=== PATIENT | female | born 1950 | race Caucasian/White ===

== ENCOUNTER → 2024-01-08 | Outpatient (CLI) | payer MEDICARE ==
[2024-01-08 15:32] LABS: HGB 12.3 g/dL (12.0-15.0); MCH 29.7 pg (27.0-32.0); MCHC 31.5 g/dL (32.0-37.0); MCV 94.2 FL (80.0-97.0); Mean Platelet Volume 13.4 FL (9.5-12.2); NRBC Per 100 WBC 0 X 10*3/uL (0.00-0.01); Platelet Count 221 X 10*3/uL (140-440); RBC 4.14 X 10*6/uL (4.10-5.20); WBC 6.37 X 10*3/uL (4.50-10.00)
[2024-01-08 15:52] LABS: % Iron Saturation 16.63 (12.00-45.00); ALT 13 U/L (8-44); AST 22 U/L (13-35); Albumin 4.5 g/dL (3.8-4.9); Albumin/Globulin Ratio 1.61 Ratio (1.60-3.17); Alkaline Phosphatase 93 U/L (41-126); BUN/Creat Ratio 16.36 Ratio (12.00-20.00); Calcium 9.7 mg/dL (8.7-10.3); Carbon Dioxide 24.1 mmol/L (21.6-31.8); Chloride 108 mmol/L (96-109); Ferritin 46.3 ng/mL (10.0-291.0); Globulin 2.8 g/dL (1.6-3.3); Glucose 89 mg/dL (70-110); Iron 68 UG/DL (50-170); Magnesium 2.1 mg/dL (1.5-2.4); Potassium 4.8 mmol/L (3.5-5.5); Sodium 143 mmol/L (135-145); Total Bilirubin 0.2 mg/dL (0.3-1.2); Total Iron Binding Capacity 409 UG/DL (228-460); Total Protein 7.3 g/dL (6.2-8.2)
[2024-01-08 16:49] LABS: Appearance,Urine Clear (Clear); Bilirubin,Urine Negative (Negative); Blood,Urine Negative (Negative); Color,Urine Yellow (Yellow); Ketones,Urine Negative (Negative); Nitrite,Urine Negative (Negative); PH, Urine 5.5; Urobilinogen,Urine 0.2 E.U./DL
[2024-01-08 16:52] LABS: Bacteria,Urine None Seen (None Seen)
[2024-01-08 22:47] LABS: Microalbumin Creatinine Ratio <23 mg/g Cr (0-30); Urine Creatinine 52.1 mg/dL (28.0-217.0)
[2024-01-12 17:55] LABS: Free Kappa Lt Chain Qnt, Serum 1.83 mg/dL (0.33-1.94)
== END | disposition home or self-care (01) ==
LOC: LABWHC1 10:26
PROVIDERS: ATTEND Internal Medicine
CPT/HCPCS: 36415; 80053; 81001; 82043; 82306; 82570; 82728; 83540; 83550; 83735; 83883; 83970; 84100; 84166; 84550; 85027; 86334

== ENCOUNTER → 2024-01-16 | Outpatient (CLI) | payer MEDICARE ==
--- NOTE | 2024-01-16 12:49 | US ---
EXAMINATION TYPE: US kidneys/renal and bladder DATE OF EXAM: 01/16/2024 COMPARISON: NONE CLINICAL INDICATION: Female, 73 years old with history of N18.32 CHRONIC KIDNEY DISEASE, STAGE 3B; CK D TECHNIQUE: Grayscale and color Doppler imaging of the bilateral kidneys and urinary bladder: FINDINGS: EXAM MEASUREMENTS: Right Kidney: 9.1 x 2.8 x 3.4 cm Left Kidney: 10.6 x 4.0 x 4.3 cm Right Kidney: Cortical thinning Left Kidney: No hydronephrosis or masses seen Bladder: Anechoic Bilateral Jets seen: yes There is no evidence for hydronephrosis at this point in time. Cortical medullary differentiation is maintained. Cortical thinning bilaterally. No nephrolithiasis is seen. No masses are identified. T he urinary bladder is anechoic. Bilateral ureteral jets identified. IMPRESSION: 1. No hydronephrosis or nephrolithiasis. 2. Findings of bilateral chronic medical renal disease. [facility], , 01/16/2024 12:47 PM
== END | disposition home or self-care (01) ==
LOC: RADUSWWP 12:13
PROVIDERS: ATTEND Internal Medicine
DX: N18.32 Chronic kidney disease, stage 3b (principal)
CPT/HCPCS: 76770

== ENCOUNTER → 2024-01-28 | Outpatient (CLI) | payer MEDICARE ==
--- NOTE | 2023-11-28 20:19 | MM ---
Reason for Exam: Screening (asymptomatic). Risk Values: Ruby 5 year model risk: 1.1%. NCI Lifetime model risk: 3.2%. Tissue Density: The breasts are heterogeneously dense, which may obscure small masses. Findings: Analyzed By CAD. There is fluctuating nodularity in an overall benign pattern. Grouped punctate microcalcifications central left breast are unchanged. There is no suspicious group of microcalcifications or new suspicious mass in either breast. Overall Assessment: Benign, BI-RAD 2 Management: Screening Mammogram of both breasts in 1 year. . Patient should continue monthly self-breast exams. A clinical breast exam by your physician is recommended on an annual basis. This exam should not preclude additional follow-up of suspicious palpable abnormalities. Note on Ruby scores and lifetime risk: 1. A Ruby score greater than 3% is considered moderate risk. If this is the case, consider specialist referral to assess eligibility for a risk reducing agent. 2. If overall lifetime risk for the development of breast cancer is 20% or higher, the patient may qualify for future screening with alternating mammogram and breast MRI. Electronically signed and approved by: Calderon Cardoza M.D. Radiologist
--- NOTE | 2024-01-28 17:02 | CA ---
Transthoracic Echo Report Name: Shelbi Carrion Age: 73 Gender: F : 1950 Exam Date: 01/28/2024 13:00 Exam Location: [facility] Ht (in): 60 Wt (lb): 121 Ordering Physician: Ovidio Ramos MD Attending/Referring Phys: Susannah Rincon PAC Varnish Thinner Juana Dupont RDCS Procedure CPT: Indications: R06.00 DYSPNEA, UNSPECIFIED Cardiac Hx: Technical Quality: Good Contrast 1: Total Dose (mL): Contrast 2: Total Dose (mL): MEASUREMENTS (Male / Female) Normal Values 2D ECHO LV Diastolic Diameter PLAX 4.6 cm 4.2 - 5.9 / 3.9 - 5.3 cm LV Systolic Diameter PLAX 2.5 cm IVS Diastolic Thickness 1.1 cm 0.6 - 1.0 / 0.6 - 0.9 cm LVPW Diastolic Thickness 1.1 cm 0.6 - 1.0 / 0.6 - 0.9 cm LV Relative Wall Thickness 0.5 RV Internal Dim ED PLAX 2.1 cm LA Systolic Diameter LX 3.3 cm 3.0 - 4.0 / 2.7 - 3.8 cm LV Diastolic Volume MOD BP 53.9 cm??? 67 - 155 / 56 - 104 cm??? LV Systolic Volume MOD BP 16.0 cm??? 22 - 58 / 19 - 49 cm??? LV Ejection Fraction MOD BP 70.3 % >= 55 % LV Cardiac Index MOD BP 1679.1 cm???/min???m??? LV Diastolic Volume MOD 4C 56.5 cm??? LV Systolic Volume MOD 4C 14.4 cm??? LV Ejection Fraction MOD 4C 74.5 % LV Cardiac Index MOD 4C 1865.3 cm???/min???m??? LV Diastolic Length 4C 7.1 cm LV Systolic Length 4C 5.6 cm LV Diastolic Volume MOD 2C 50.8 cm??? LV Systolic Volume MOD 2C 17.1 cm??? LV Ejection Fraction MOD 2C 66.2 % LV Cardiac Index MOD 2C 1490.5 cm???/min???m??? LV Diastolic Length 2C 7.2 cm LV Systolic Length 2C 5.9 cm LA Volume 54.0 cm??? 18 - 58 / 22 - 52 cm??? LA Volume Index 35.2 cm???/m??? 16 - 28 cm???/m??? M-MODE Aortic Root Diameter MM 2.9 cm LA Systolic Diameter MM 3.6 cm LA Ao Ratio MM 1.3 AV Cusp Separation MM 1.7 cm DOPPLER MV Area PHT 3.2 cm??? Mitral E Point Velocity 89.0 cm/s Mitral A Point Velocity 74.2 cm/s Mitral E to A Ratio 1.2 MV Deceleration Time 238.1 ms TR Peak Velocity 235.8 cm/s TR Peak Gradient 22.2 mmHg Right Ventricular Systolic Press 26.8 mmHg FINDINGS Left Ventricle Left ventricular ejection fraction is estimated at 60-65 %. Mildly increased septal wall thickness. Mildly increased posterior wall thickness. Left ventricular cavity size normal. No obvious regional wall motion abnormalities. Right Ventricle Normal right ventricular size and function. Right ventricular systolic pressure within normal limits. Right Atrium Normal right atrial size. Left Atrium Mildly increased left atrial volume. Mitral Valve Structurally normal mitral valve. Moderate mitral regurgitation. No mitral stenosis. Aortic Valve Trileaflet aortic valve. No aortic valve stenosis or regurgitation. Tricuspid Valve Structurally normal tricuspid valve. Mild tricuspid regurgitation. No tricuspid stenosis. Pulmonic Valve Structurally normal pulmonic valve. Trace pulmonic regurgitation. No pulmonic stenosis. Pericardium No pericardial or pleural effusion. Aorta Normal size aortic root and proximal ascending aorta. CONCLUSIONS Normal LV function Moderate mitral regurgitation Previewed by: Dr. Tda Obando MD (Electronically Signed) Final Date: 28 January 2024 17:01
== END | disposition home or self-care (01) ==
LOC: RADECHMAIN 11-10 13:00
PROVIDERS: ATTEND Family Medicine
DX: Z12.31 Encounter for screening mammogram for malignant neoplasm of breast (principal); R06.00 Dyspnea, unspecified; R92.333 Mammographic heterogeneous density, bilateral breasts; I34.0 Nonrheumatic mitral (valve) insufficiency
CPT/HCPCS: 77063; 77067; 93306

== ENCOUNTER → 2024-04-21 | Outpatient (CLI) | payer MEDICARE ==
[2024-04-21 15:04] LABS: Appearance,Urine Clear (Clear); Bilirubin,Urine Negative (Negative); Blood,Urine Negative (Negative); Color,Urine Yellow (Yellow); Ketones,Urine Negative (Negative); Nitrite,Urine Negative (Negative); PH, Urine 5.5; Specific Gravity,Urine 1.015 (1.001-1.030); Urobilinogen,Urine 0.2 E.U./DL
[2024-04-21 15:09] LABS: Bacteria,Urine None Seen (None Seen)
[2024-04-21 15:48] LABS: NT-Pro-B-Type Natriuretic Pept 198 pg/mL (0-125)
[2024-04-21 16:02] LABS: % Iron Saturation 18.65 (12.00-45.00); ALT 12 U/L (8-44); AST 18 U/L (13-35); Albumin 4.3 g/dL (3.8-4.9); Albumin/Globulin Ratio 1.65 Ratio (1.60-3.17); Alkaline Phosphatase 77 U/L (41-126); BUN/Creat Ratio 12.25 Ratio (12.00-20.00); Blood Urea Nitrogen 14.7 mg/dL (9.0-27.0); Calcium 9.5 mg/dL (8.7-10.3); Carbon Dioxide 24.9 mmol/L (21.6-31.8); Chloride 107 mmol/L (96-109); Chol/HDL Ratio 2.64 Ratio; Ferritin 40.3 ng/mL (10.0-291.0); Globulin 2.6 g/dL (1.6-3.3); Glucose 86 mg/dL (70-110); Iron 72 UG/DL (50-170); Potassium 4.4 mmol/L (3.5-5.5); Sodium 144 mmol/L (135-145); Total Bilirubin 0.3 mg/dL (0.3-1.2); Total Iron Binding Capacity 386 UG/DL (228-460); Total Protein 6.9 g/dL (6.2-8.2); VLDL Calculation 16.34 mg/dL (5.00-40.00)
[2024-04-21 17:02] LABS: Basophils # (A) 0.05 X 10*3/uL (0.00-0.10); Basophils % (A) 0.9 %; Eosinophils # (A) 0.15 X 10*3/uL (0.04-0.35); Eosinophils % (A) 2.6 %; HCT 37.6 % (37.2-46.3); HGB 11.7 g/dL (12.0-15.0); Lymphocytes # (A) 1.27 X 10*3/uL (0.90-5.00); Lymphocytes % (A) 22.2 %; MCHC 31.1 g/dL (32.0-37.0); MCV 93.1 FL (80.0-97.0); Mean Platelet Volume 13.3 FL (9.5-12.2); Monocytes # (A) 0.35 X 10*3/uL (0.20-1.00); Monocytes % (A) 6.1 %; NRBC Per 100 WBC 0 X 10*3/uL (0.00-0.01); Neutrophils # (A) 3.89 X 10*3/uL (1.80-7.70); Platelet Count 252 X 10*3/uL (140-440); RBC 4.04 X 10*6/uL (4.10-5.20); RDW 13.2 % (11.5-14.5); WBC 5.72 X 10*3/uL (4.50-10.00)
[2024-04-21 20:42] LABS: Microalbumin Creatinine Ratio <9 mg/g Cr (0-30)
== END | disposition home or self-care (01) ==
LOC: LABWHC1 08:27
PROVIDERS: ATTEND Nurse Practitioner Family
DX: I50.9 Heart failure, unspecified (principal); I42.9 Cardiomyopathy, unspecified; E03.9 Hypothyroidism, unspecified; E78.5 Hyperlipidemia, unspecified; E11.22 Type 2 diabetes mellitus with diabetic chronic kidney disease; N18.32 Chronic kidney disease, stage 3b; D64.9 Anemia, unspecified; N39.0 Urinary tract infection, site not specified; R80.9 Proteinuria, unspecified
CPT/HCPCS: 36415; 80053; 80061; 81001; 82043; 82570; 82728; 83036; 83540; 83550; 83880; 84439; 84443; 84484; 85025

== ENCOUNTER 2024-05-26 16:10 | Inpatient (IN) | payer MEDICARE ==
--- NOTE | 2024-05-26 16:34 | ED ---
Weakness HPI - General Stated complaint: Kidney complications Time Seen by Provider: 05/26/24 16:24 Source: patient, family, RN notes reviewed Mode of arrival: ambulatory Limitations: no limitations - History of Present Illness Initial comments: This is a 74-year-old female with history of CKD stage IIIb, CVA, mitral valve prolapse, hypertension and pneumonia presenting with daughter for kidney concern x 10 days. Patient endorses productive cough, fatigue, decreased appetite, nausea and transient fever. Patient also mentions constant, nonradiating substernal chest pressure with shortness of breath. Endorses SELF and sleeping with extra pillows to remain inclined. States she was sent to ER from urgent care due to history of CKD and current symptoms. Endorses father having AMI in his 70s. Endorses testing negative for COVID, flu and RSV while in urgent care. MD Complaint: generalized weakness Onset/Timin -: days(s) Quality: other (Pressure) Consistency: constant Improves with: rest Worsens with: movement, exertion Associated Symptoms: chest pain, loss of appetite, nausea/vomiting, shortness of breath - Related Data Home Medications Medication Instructions Recorded Confirmed Calcium 500mg-Vit D3 10mcg 1 tab PO DAILY 05/26/24 05/26/24 Chlorthalidone [Hygroton] 25 mg PO DAILY 05/26/24 05/26/24 Cholecalciferol (Vitamin D3) 100 mcg PO DAILY 05/26/24 05/26/24 [Vitamin D3 (50 Mcg = 2000 Iu)] Clopidogrel [Plavix] 75 mg PO DAILY 05/26/24 05/26/24 Gabapentin [Neurontin] 300 mg PO BID 05/26/24 05/26/24 Hydroxychloroquine Sulfate 200 mg PO DAILY 05/26/24 05/26/24 [Plaquenil] Isosorbide Mononitrate ER [Imdur] 30 mg PO HS 05/26/24 05/26/24 Levothyroxine Sodium [Synthroid] 75 mcg PO DAILY 05/26/24 05/26/24 Losartan Potassium 100 mg PO HS 05/26/24 05/26/24 Omeprazole 40 mg PO DAILY 05/26/24 05/26/24 Vitamin C With Janette Hips And 2 tab PO DAILY 05/26/24 05/26/24 [place] Bioflavonoid Complex buPROPion XL [Wellbutrin XL] 300 mg PO DAILY 05/26/24 05/26/24 carvediloL [Coreg] 25 mg PO BID 05/26/24 05/26/24 diphenhydrAMINE HCL [Benadryl] 25 mg PO DAILY 05/26/24 05/26/24 methocarbamoL [Robaxin-750] 750 mg PO DAILY 05/26/24 05/26/24 tiZANidine [Zanaflex] 4 mg PO HS 05/26/24 05/26/24 Allergies Allergy/AdvReac Type Severity Reaction Status Date / Time Penicillins Allergy Swelling/hives/shortness Verified 05/26/24 20:49 of breath Sulfa (Sulfonamide Allergy Swelling/hives/shortness Verified 05/26/24 20:49 Antibiotics) of breath sulfamethoxazole Allergy Swelling/hives/shortness Verified 05/26/24 20:49 [From Bactrim] of breath trimethoprim [From Bactrim] Allergy Swelling/hives/shortness Verified 05/26/24 20:49 of breath Review of Systems ROS Statement: Those systems with pertinent positive or pertinent negative responses have been documented in the HPI. ROS Other: All systems not noted in ROS Statement are negative. General Exam General appearance: alert, in no apparent distress Head exam: Present: atraumatic, normocephalic, normal inspection Eye exam: Present: normal appearance, PERRL, EOMI. Absent: scleral icterus, conjunctival injection, periorbital swelling ENT exam: Present: normal exam, mucous membranes moist Neck exam: Present: normal inspection. Absent: tenderness, meningismus, lymp hadenopathy Respiratory exam: Present: decreased breath sounds (Diminished lung sounds in bases of bilateral lower lobes). Absent: respiratory distress, wheezes, rales, rhonchi, stridor, accessory muscle use, prolonged expiratory Cardiovascular Exam: Present: regular rate, normal rhythm, normal heart sounds. Absent: systolic murmur, diastolic murmur, rubs, gallop, clicks GI/Abdominal exam: Present: soft, normal bowel sounds. Absent: distended, tenderness, guarding, rebound, rigid Extremities exam: Present: normal inspection, full ROM, normal capillary refill, other (Bilateral posterior tibialis pulse +2). Absent: tenderness, pedal edema (Negative BLE edema), joint swelling, calf tenderness Back exam: Present: normal inspection Neurological exam: Present: alert, oriented X3, CN II-XII intact Psychiatric exam: Present: normal affect, normal mood Skin exam: Present: warm, dry, intact, normal color. Absent: rash Course Vital Signs 05/26/24 05/26/24 05/26/24 16:42 18:00 20:39 Temperature 97.8 F 98.8 F Pulse Rate 105 H 102 H 96 Respiratory 20 18 18 Rate Blood Pressure 123/84 121/60 131/81 O2 Sat by Pulse 96 94 L 95 Oximetry Medical Decision Making - Medical Decision Making Was pt. sent in by a medical professional or institution (, PA, SECURITY TEAM LEAD, urgent care, hospital, or senior living...) When possible be specific @ -No Did you speak to anyone other than the patient for history (EMS, parent, family, police, friend...)? What history was obtained from this source @ -No Did you review nursing and triage notes (agree or disagree)? Why? @ -I reviewed and agree with nursing and triage notes Were old charts reviewed (outside hosp., previous admission, EMS record, old EKG, old radiological studies, urgent care reports/EKG's, senior living records)? Report findings @ -No old charts were reviewed Differential Diagnosis (chest pain, altered mental status, abdominal pain women, abdominal pain men, vaginal bleeding, weakness, fever, dyspnea, syncope, headach e, dizziness, GI bleed, back pain, seizure, CVA, palpatations, mental health, musculoskeletal)? @ -Differential Weakness: Hypoglycemia, shock, sepsis, hyponatremia, anemia, infection, MT, ETOH, adverse medicine reaction, overdose, stroke, this is not meant to be an all-inclusive list. EKG interpreted by me (3pts min.). @ -Sinus rhythm with inferior and anterior lead T wave inversion. No ST edward ation. Ventricular rate 94 bpm, JERMAINE 119 ms, QRS duration 183 ms, QTc 399 ms. X-rays interpreted by me (1pt min.). @ -CXR shows indication of COPD with no acute process CT interpreted by me (1pt min.). @ -None done U/S interpreted by me (1pt. min.). @ -None done What testing was considered but not performed or refused? (CT, X-rays, U/S, labs)? Why? @ -None What meds were considered but not given or refused? Why? @ -None Did you discuss the management of the patient with other professionals (prof harley i.e. , PA, SECURITY TEAM LEAD, lab, RT, psych nurse, social sciences department chair, venue coordinator, teacher, commissioned defence force officer, case management manager)? Give summary @ -Discussed admission of patient with [facility] physician Dr. Bacon. Was smoking cessation discussed for >3mins.? @ -No Was critical care preformed (if so, how long)? @ -No Were there social determinants of health that impacted care today? How? (Homele ssness, low income, unemployed, alcoholism, drug addiction, transportation, low edu. Level, literacy, decrease access to med. care, skilled nursing, rehab)? @ -No Was there de-escalation of care discussed even if they declined (Discuss DNR or withdrawal of care, Hospice)? DNR status @ -No What co-morbidities impacted this encounter? (DM, HTN, Smoking, COPD, CAD, Cancer, CVA, ARF, Chemo, Hep., AIDS, mental health diagnosis, sleep apnea, morbid obesity)? @ -CKD stage IIIb Was patient admitted / discharged? Hospital course, mention meds given and route, prescriptions, significant lab abnormalities, going to OR and other pertinent info. @ -Lab work significant for anion gap 21 and STEPHANIE with significantly elevated BUN (65) and creatinine (2.36) from baseline. Troponin and BNP unremarkable. CXR shows no acute cardiopulmonary process with only COPD changes. Patient provided IV normal saline. Discussed admission of patient with [facility] physician Dr. Bacon. Discussed patient with Dr. Jerez. Undiagnosed new problem with uncertain prognosis? @ -Yes Drug Therapy requiring intensive monitoring for toxicity (Heparin, Nitro, Insulin, Cardizem)? @ -No Were any procedures done? @ -No Diagnosis/symptom? @ -Acute kidney injury Acute, or Chronic, or Acute on Chronic? @ -Acute Uncomplicated (without systemic symptoms) or Complicated (systemic symptoms)? @ -Complicated Side effects of treatment? @ -No Exacerbation, Progression, or Severe Exacerbation? @ -No Poses a threat to life or bodily function? How? (Chest pain, USA, MT, pneumonia, PE, COPD, DKA, ARF, appy, cholecystitis, CVA, Diverticulitis, Homicidal, Suicidal, threat to staff... and all critical care pts) @ -No - Lab Data Result diagrams: 05/26/24 17:47 05/26/24 17:47 Lab Results 05/26/24 05/26/24 05/26/24 Range/Units 17:47 17:47 17:47 WBC 11.7 H (3.8-10.6) k/uL RBC 5.56 H (3.80-5.40) m/uL Hgb 16.1 H (11.4-16.0) gm/dL Hct 50.4 H (34.0-46.0) % MCV 90.7 (80.0-100.0) fL MCH 29.0 (25.0-35.0) pg MCHC 31.9 (31.0-37.0) g/dL RDW 13.0 (11.5-15.5) % Plt Count 223 (150-450) k/uL MPV 10.8 Neutrophils % 76 % Lymphocytes % 16 % Monocytes % 5 % Eosinophils % 1 % Basophils % 1 % Neutrophils # 8.9 H (1.3-7.7) k/uL Lymphocytes # 1.8 (1.0-4.8) k/uL Monocytes # 0.6 (0-1.0) k/uL Eosinophils # 0.1 (0-0.7) k/uL Basophils # 0.1 (0-0.2) k/uL PT 10.6 (10.0-12.5) sec INR 0.9 (<1.2) APTT 16.8 L (22.0-30.0) sec Sodium 137 (137-145) mmol/L Potassium 5.1 (3.5-5.1) mmol/L Chloride 95 L (98-107) mmol/L Carbon Dioxide 21 L (22-30) mmol/L Anion Gap 21 mmol/L BUN 65 H (7-17) mg/dL Creatinine 2.36 H (0.52-1.04) mg/dL Est GFR (CKD-EPI)AfAm 23 (>60 ml/min/1.73 sqM) Est GFR (CKD-EPI)NonAf 20 (>60 ml/min/1.73 sqM) Glucose 101 H (74-99) mg/dL Calcium 10.4 H (8.4-10.2) mg/dL Magnesium 2.4 H (1.6-2.3) mg/dL Total Bilirubin 1.2 (0.2-1.3) mg/dL AST 35 (14-36) U/L ALT 22 (4-34) U/L Alkaline Phosphatase 81 (38-126) U/L Troponin I (0.000-0.034) ng/mL NT-Pro-B Natriuret Pep 173 pg/mL Total Protein 9.5 H (6.3-8.2) g/dL Albumin 5.2 H (3.5-5.0) g/dL Urine Color Urine Appearance (Clear) Urine pH (5.0-8.0) Ur Specific [place] (1.001-1.035) Urine Protein (Negative) Urine Glucose (UA) (Negative) Urine Ketones (Negative) Urine Blood (Negative) Urine Nitrite (Negative) Urine Bilirubin (Negative) Urine Urobilinogen (<2.0) mg/dL Ur Leukocyte Esterase (Negative) Urine RBC (0-5) /hpf Urine WBC (0-5) /hpf Ur Squamous Epith Cells (0-4) /hpf Hyaline Casts (0-2) /lpf Urine Mucus (None) /hpf 05/26/24 05/26/24 Range/Units 17:47 20:00 WBC (3.8-10.6) k/uL RBC (3.80-5.40) m/uL Hgb (11.4-16.0) gm/dL Hct (34.0-46.0) % MCV (80.0-100.0) fL MCH (25.0-35.0) pg MCHC (31.0-37.0) g/dL RDW (11.5-15.5) % Plt Count (150-450) k/uL MPV Neutrophils % % Lymphocytes % % Monocytes % % Eosinophils % % Basophils % % Neutrophils # (1.3-7.7) k/uL Lymphocytes # (1.0-4.8) k/uL Monocytes # (0-1.0) k/uL Eosinophils # (0-0.7) k/uL Basophils # (0-0.2) k/uL PT (10.0-12.5) sec INR (<1.2) APTT (22.0-30.0) sec Sodium (137-145) mmol/L Potassium (3.5-5.1) mmol/L Chloride (98-107) mmol/L Carbon Dioxide (22-30) mmol/L Anion Gap mmol/L BUN (7-17) mg/dL Creatinine (0.52-1.04) mg/dL Est GFR (CKD-EPI)AfAm (>60 ml/min/1.73 sqM) Est GFR (CKD-EPI)NonAf (>60 ml/min/1.73 sqM) Glucose (74-99) mg/dL Calcium (8.4-10.2) mg/dL Magnesium (1.6-2.3) mg/dL Total Bilirubin (0.2-1.3) mg/dL AST (14-36) U/L ALT (4-34) U/L Alkaline Phosphatase (38-126) U/L Troponin I 0.012 (0.000-0.034) ng/mL NT-Pro-B Natriuret Pep pg/mL Total Protein (6.3-8.2) g/dL Albumin (3.5-5.0) g/dL Urine Color Yellow Urine Appearance Cloudy H (Clear) Urine pH 5.0 (5.0-8.0) Ur Specific [place] 1.020 (1.001-1.035) Urine Protein 1+ H (Negative) Urine Glucose (UA) Negative (Negative) Urine Ketones Negative (Negative) Urine Blood Negative (Negative) Urine Nitrite Negative (Negative) Urine Bilirubin Negative (Negative) Urine Urobilinogen <2.0 (<2.0) mg/dL Ur Leukocyte Esterase Negative (Negative) Urine RBC 1 (0-5) /hpf Urine WBC 2 (0-5) /hpf Ur Squamous Epith Cells 1 (0-4) /hpf Hyaline Casts 57 H (0-2) /lpf Urine Mucus Rare H (None) /hpf Disposition Clinical Impression: STEPHANIE (acute kidney injury) Disposition: ADMITTED IP TO THIS [facility] Condition: Good Instructions (If sedation given, give patient instructions): Acute Kidney Injury (DC) Is patient prescribed a controlled substance at d/c from ED?: No Referrals: Ovidio Ramos MD [Primary Care Provider] - 1-2 days Time of Disposition: 19:15 Decision Date: 05/26/24 Decision Time: 19:15
[2024-05-26] MEDS: ONDANSETRON 4 MG/2 ML VIAL IVP STA (17:46)
[2024-05-26 18:05] LABS: Basophils # (A) 0.1 k/uL (0-0.2); Basophils % (A) 1 %; Eosinophils # (A) 0.1 k/uL (0-0.7); Eosinophils % (A) 1 %; HCT 50.4 % (34.0-46.0); HGB 16.1 gm/dL (11.4-16.0); Lymphocytes # (A) 1.8 k/uL (1.0-4.8); Lymphocytes % (A) 16 %; MCHC 31.9 g/dL (31.0-37.0); MCV 90.7 fL (80.0-100.0); Mean Platelet Volume 10.8; Monocytes # (A) 0.6 k/uL (0-1.0); Monocytes % (A) 5 %; Neutrophils # (A) 8.9 k/uL (1.3-7.7); Neutrophils % (A) 76 %; Platelet Count 223 k/uL (150-450); RBC 5.56 m/uL (3.80-5.40); WBC 11.7 k/uL (3.8-10.6)
[2024-05-26 18:18] LABS: ALT 22 U/L (4-34); African American GFR (CKD) 23 (>60 ml/min/1.73 sqM); Anion Gap 21 mmol/L; Blood Urea Nitrogen 65 mg/dL (7-17); Calcium 10.4 mg/dL (8.4-10.2); Carbon Dioxide 21 mmol/L (22-30); Chloride 95 mmol/L (98-107); Glucose 101 mg/dL (74-99); Magnesium 2.4 mg/dL (1.6-2.3); Non-African American GFR(CKD) 20 (>60 ml/min/1.73 sqM); Sodium 137 mmol/L (137-145); Total Bilirubin 1.2 mg/dL (0.2-1.3); Total Protein 9.5 g/dL (6.3-8.2)
[2024-05-26 18:19] LABS: INR 0.9 (<1.2); Prothrombin Time 10.6 sec (10.0-12.5)
[2024-05-26 18:24] LABS: AST 35 U/L (14-36); Albumin 5.2 g/dL (3.5-5.0); Alkaline Phosphatase 81 U/L (38-126); Potassium 5.1 mmol/L (3.5-5.1)
[2024-05-26 18:26] LABS: NT-Pro-B-Type Natriuretic Pept 173 pg/mL
[2024-05-26 18:27] LABS: Partial Thromboplastin Time 16.8 sec (22.0-30.0)
--- NOTE | 2024-05-26 18:42 | XR ---
EXAMINATION TYPE: XR chest 2V DATE OF EXAM: 05/26/2024 6:08 PM COMPARISON: None CLINICAL INDICATION: Female, 74 years old with history of Cough; TECHNIQUE: XR chest 2V Frontal and lateral views of the chest. FINDINGS: Lungs/Pleura: There is flattening of the diaphragm with increased lucency of the lungs. No evidence o f pneumothorax, pleural effusion or focal consolidation. Pulmonary vascularity: Unremarkable. Heart/mediastinum: Cardiomediastinal silhouette is unremarkable. Musculoskeletal: No acute osseous pathology. IMPRESSION: 1. No acute cardiopulmonary disease process. 2. COPD changes. [facility], , 05/26/2024 6:40 PM
[2024-05-26] MEDS: SODIUM CHLORIDE 0.9% 500 ML IV STA (18:44)
[2024-05-26] MEDS ORDERED: ACETAMINOPHEN TAB 325 MG TAB PO PRN (20:18)
[2024-05-26] MEDS ORDERED: NALOXONE 0.4 MG/ML 1 ML VIAL IV PRN (20:18)
[2024-05-26] MEDS ORDERED: ONDANSETRON 4 MG/2 ML VIAL IVP PRN (20:18)
[2024-05-26] MEDS: SODIUM CHLORIDE 0.9% 1,000 ML IV STA (20:41)
[2024-05-26 20:47] LABS: Appearance,Urine Cloudy (Clear); Bilirubin,Urine Negative (Negative); Blood,Urine Negative (Negative); Color,Urine Yellow; Glucose,Urine (UA) Negative (Negative); Hyaline Casts,Urine 57 /lpf (0-2); Ketones,Urine Negative (Negative); Leukocyte Esterase,Urine Negative (Negative); Mucus,Urine Rare /hpf; Nitrite,Urine Negative (Negative); Protein,Urine 1+ (Negative); RBC,Urine 1 /hpf (0-5); Squamous Epithelial Cell,Urine 1 /hpf (0-4); Urobilinogen,Urine <2.0 mg/dL (<2.0); WBC,Urine 2 /hpf (0-5)
[2024-05-26] MEDS: SODIUM CHLORIDE 0.9% 1,000 ML IV SCH (22:47)
--- NOTE | 2024-05-27 01:47 | P.HPIM ---
History of Present Illness H&P Date: 05/26/24 History of present illness; Patient is a 74-year-old female with history of CKD stage IIIb, CVA, mitral valve prolapse, hypertension presenting with for generalized weakness and cough. Patient endorses cough with productive greenish sputum, fatigue, decreased appetite, nausea and ongoing diarrhea. She states that close been going on the family and she did have sore throat and fever which is now resolved. Viral respiratory panel was negative at urgent care today. She continues to endorse some poor appetite, nausea, diarrhea, chest tightness with coughing and weakness. Currently patient reports absence of fever, chills, chest pain, palpitations, diaphoresis, abdominal pain, constipation, myalgia, headache, and dysuria. Spoke with the ER physician, patient admission was accepted by internal medicine service for treatment. REVIEW OF SYSTEMS: Pertinent positives and negatives noted in HPI. PHYSICAL EXAMINATION: Vitals reviewed GENERAL: Resting comfortably in bed. EYES: PERRL, no scleral injection or icterus. No vision loss HENT: Normocephalic, atraumatic, hearing grossly intact, dry mucous membranes NECK: No tracheal deviation, full range of motion. CARDIOVASCULAR: S1 and S2 present. No murmurs, rubs, or gallops. PULMONARY: Diminished breath sounds, otherwise chest is clear to auscultation, no wheezing, rhonchi, or crackles. ABDOMEN: Soft, nontender, nondistended. No palpable organomegaly. MUSCULOSKELETAL: No apparent joint swelling and deformities. EXTREMITIES: No apparent cyanosis, clubbing. No pedal edema. NEUROLOGICAL: Alert and oriented. Gross neurological examination with no apparent focal deficits. SKIN: No apparent rashes. ER FINDINGS: Labs significant for WBC 11.7, hemoglobin 16.1, hematocrit 50.4, sodium 137, potassium 5.1, chloride 95, bicarb 21, anion gap 21, BUN 65, creatinine 2.36, GFR 20, glucose 101, lactic acid 1.7, calcium 10.4, magnesium 2.4, troponin 0.012, proBNP 173, UA significant for cloudy appearance and 1+ protein with hyaline casts 57 EKG independently interpreted showed sinus rhythm, heart rate of 94, UT interval 119, QTc 399, no ST segment elevation or depression seen, with T wave inversion in leads V3 and V4. Chest x-ray done independently interpreted showed no acute cardiopulmonary process. Assessment and Plan: In summary, patient is a 74-year-old female with history of CKD stage IIIb, CVA, mitral valve prolapse, hypertension presenting with for generalized weakness. # STEPHANIE, likely prerenal due to dehydration secondary to poor oral intake and diarrhea #CKD stage III or IV, baseline creatinine unknown #High anion gap metabolic acidosis Initial BUN 65, creatinine 2.36, GFR 20 UA with 1+ protein, hyaline casts Bicarb 21, anion gap 21 Given 1 L normal saline Continue IV normal saline at 100 cc/h - Hold diuretics and ARB and avoid nephrotoxic medications Monitor CMP #Leukocytosis, likely reactive with dehydration #Elevated hematocrit, as above Monitor CBC Chronic Medical Conditions #Essential hypertensionhold home diuretics and ARB #History of stroke #Hypothyroidism #GERD #Anxiety/Depression #Scleroderma #Chronic pain Resume home medications DVT ppx: Subq Lovenox 30 meq daily Code status: Full code F: IV Normal saline 100 mL/hr E: Replete as needed N: Heart healthy diet Anticipated discharge place: Home Anticipated discharge time: 1 to 2 days Dictation was produced using [email or web address] dictation software. Please excuse any grammatical, word or spelling errors. I have seen and evaluated the patient today. I Discussed the case with the resident and agree with the resident's findings I edited the assessment and plan as necessary as documented in the resident's note. Past Medical History Past Medical History: CVA/TIA, GERD/Reflux, Hypertension, Pneumonia, Skin Disorder Additional Past Medical History / Comment(s): Stage 3 CKD, Scleroderma, Mitral Valve Prolapse History of Any Multi-Drug Resistant Organisms: None Reported Past Surgical History: No Surgical Hx Reported Past Psychological History: No Psychological Hx Reported Smoking Status: Never smoker Past Alcohol Use History: Occasional Past Drug Use History: None Reported Medications and Allergies Home Medications Medication Instructions Recorded Confirmed Type Calcium 500mg-Vit D3 10mcg 1 tab PO DAILY 05/26/24 05/26/24 History Chlorthalidone [Hygroton] 25 mg PO DAILY 05/26/24 05/26/24 History Cholecalciferol (Vitamin D3) 100 mcg PO DAILY 05/26/24 05/26/24 History [Vitamin D3 (50 Mcg = 2000 Iu)] Clopidogrel [Plavix] 75 mg PO DAILY 05/26/24 05/26/24 History Gabapentin [Neurontin] 300 mg PO BID 05/26/24 05/26/24 History Hydroxychloroquine Sulfate 200 mg PO DAILY 05/26/24 05/26/24 History [Plaquenil] Isosorbide Mononitrate ER [Imdur] 30 mg PO HS 05/26/24 05/26/24 History Levothyroxine Sodium [Synthroid] 75 mcg PO DAILY 05/26/24 05/26/24 History Losartan Potassium 100 mg PO HS 05/26/24 05/26/24 History Omeprazole 40 mg PO DAILY 05/26/24 05/26/24 History Vitamin C With Janette Hips And 2 tab PO DAILY 05/26/24 05/26/24 History [place] Bioflavonoid Complex buPROPion XL [Wellbutrin XL] 300 mg PO DAILY 05/26/24 05/26/24 History carvediloL [Coreg] 25 mg PO BID 05/26/24 05/26/24 History diphenhydrAMINE HCL [Benadryl] 25 mg PO DAILY 05/26/24 05/26/24 History methocarbamoL [Robaxin-750] 750 mg PO DAILY 05/26/24 05/26/24 History tiZANidine [Zanaflex] 4 mg PO HS 05/26/24 05/26/24 History Allergies Allergy/AdvReac Type Severity Reaction Status Date / Time Penicillins Allergy Swelling/hives/shortness Verified 05/26/24 20:49 of breath Sulfa (Sulfonamide Allergy Swelling/hives/shortness Verified 05/26/24 20:49 Antibiotics) of breath sulfamethoxazole Allergy Swelling/hives/shortness Verified 05/26/24 20:49 [From Bactrim] of breath trimethoprim [From Bactrim] Allergy Swelling/hives/shortness Verified 05/26/24 20:49 of breath Physical Exam Vitals: Vital Signs Temp Pulse Resp BP Pulse Ox 05/26/24 20:39 98.8 F 96 18 131/81 95 05/26/24 18:00 102 H 18 121/60 94 L 05/26/24 16:42 97.8 F 105 H 20 123/84 96 Intake and Output 05/26/24 05/26/24 05/26/24 06:59 14:59 22:59 Other: Weight 54.885 kg Results CBC & Chem 7: 05/26/24 17:47 05/26/24 17:47 Labs: Abnormal Lab Results - Last 24 Hours (Table) 05/26/24 05/26/24 05/26/24 Range/Units 17:47 17:47 17:47 WBC 11.7 H (3.8-10.6) k/uL RBC 5.56 H (3.80-5.40) m/uL Hgb 16.1 H (11.4-16.0) gm/dL Hct 50.4 H (34.0-46.0) % Neutrophils # 8.9 H (1.3-7.7) k/uL APTT 16.8 L (22.0-30.0) sec Chloride 95 L (98-107) mmol/L Carbon Dioxide 21 L (22-30) mmol/L BUN 65 H (7-17) mg/dL Creatinine 2.36 H (0.52-1.04) mg/dL Glucose 101 H (74-99) mg/dL Calcium 10.4 H (8.4-10.2) mg/dL Magnesium 2.4 H (1.6-2.3) mg/dL Total Protein 9.5 H (6.3-8.2) g/dL Albumin 5.2 H (3.5-5.0) g/dL Urine Appearance (Clear) Urine Protein (Negative) Hyaline Casts (0-2) /lpf Urine Mucus (None) /hpf 05/26/24 Range/Units 20:00 WBC (3.8-10.6) k/uL RBC (3.80-5.40) m/uL Hgb (11.4-16.0) gm/dL Hct (34.0-46.0) % Neutrophils # (1.3-7.7) k/uL APTT (22.0-30.0) sec Chloride (98-107) mmol/L Carbon Dioxide (22-30) mmol/L BUN (7-17) mg/dL Creatinine (0.52-1.04) mg/dL Glucose (74-99) mg/dL Calcium (8.4-10.2) mg/dL Magnesium (1.6-2.3) mg/dL Total Protein (6.3-8.2) g/dL Albumin (3.5-5.0) g/dL Urine Appearance Cloudy H (Clear) Urine Protein 1+ H (Negative) Hyaline Casts 57 H (0-2) /lpf Urine Mucus Rare H (None) /hpf
[2024-05-27] MEDS: carvediloL 12.5 MG TAB PO SCH (05:54)
[2024-05-27] MEDS: PANTOPRAZOLE 40 MG TABLET PO SCH (05:54)
[2024-05-27] MEDS: LEVOTHYROXINE 75 MCG TAB PO SCH (05:54)
[2024-05-27] MEDS: CHLORTHALIDONE 25 MG TAB PO SCH (09:17)
[2024-05-27] MEDS: buPROPion XL 300 MG TAB.ER.24H PO SCH (09:17)
[2024-05-27] MEDS: CLOPIDOGREL 75 MG TAB PO SCH (09:17)
[2024-05-27] MEDS: CHOLECALCIFEROL 125 MCG (5000 IU) TABLET PO SCH (09:17)
[2024-05-27] MEDS: GABAPENTIN 300 MG CAP PO SCH (09:17)
[2024-05-27] MEDS: diphenhydrAMINE 25 MG CAP PO SCH (09:17)
[2024-05-27] MEDS: ENOXAPARIN 30 MG/0.3 ML SYRINGE SQ SCH (09:17)
[2024-05-27] MEDS: methocarbamoL 750 MG TAB PO SCH (09:18)
[2024-05-27] MEDS: HYDROXYCHLOROQUINE SULFATE 200 MG TAB PO SCH (09:18)
[2024-05-27] MEDS: CALCIUM CARBONATE 500 MG CHEWABLE PO SCH (09:18)
[2024-05-27 10:53] LABS: BUN/Creat Ratio 30.06 Ratio (12.00-20.00); Blood Urea Nitrogen 48.1 mg/dL (9.0-27.0); Chloride 105 mmol/L (96-109); Glucose 104 mg/dL (70-110); Potassium 4.2 mmol/L (3.5-5.5); Sodium 137 mmol/L (135-145)
[2024-05-27 10:54] LABS: ALT 16 U/L (8-44); AST 21 U/L (13-35); Albumin 3.6 g/dL (3.8-4.9); Albumin/Globulin Ratio 1.38 Ratio (1.60-3.17); Alkaline Phosphatase 57 U/L (41-126); Calcium 8.6 mg/dL (8.7-10.3); Globulin 2.6 g/dL (1.6-3.3); Total Bilirubin 0.5 mg/dL (0.3-1.2); Total Protein 6.2 g/dL (6.2-8.2)
[2024-05-27 11:37] LABS: Basophils # (A) 0.04 X 10*3/uL (0.00-0.10); Basophils % (A) 0.4 %; Eosinophils # (A) 0.02 X 10*3/uL (0.04-0.35); Eosinophils % (A) 0.2 %; HCT 36.9 % (37.2-46.3); HGB 11.9 g/dL (12.0-15.0); Lymphocytes # (A) 2.24 X 10*3/uL (0.90-5.00); Lymphocytes % (A) 24.9 %; MCH 28.9 pg (27.0-32.0); MCHC 32.2 g/dL (32.0-37.0); MCV 89.6 FL (80.0-97.0); Mean Platelet Volume 13.9 FL (9.5-12.2); Monocytes # (A) 0.59 X 10*3/uL (0.20-1.00); Monocytes % (A) 6.5 %; NRBC Per 100 WBC 0 X 10*3/uL (0.00-0.01); Neutrophils # (A) 6.09 X 10*3/uL (1.80-7.70); Neutrophils % (A) 67.7 %; Platelet Count 187 X 10*3/uL (140-440); RBC 4.12 X 10*6/uL (4.10-5.20); RDW 13.2 % (11.5-14.5); WBC 9.01 X 10*3/uL (4.50-10.00)
--- NOTE | 2024-05-27 15:23 | P.PN ---
Subjective Progress Note Date: 05/27/24 Patient is a 74-year-old female with history of CKD stage IIIb, CVA, mitral valve prolapse, hypertension presenting with for generalized weakness and cough. Patient endorses cough with productive greenish sputum, fatigue, decreased appetite, nausea and ongoing diarrhea. She states that close been going on the family and she did have sore throat and fever which is now resolved. Viral respiratory panel was negative at urgent care today. She continues to endorse some poor appetite, nausea, diarrhea, chest tightness with coughing and weakness. Currently patient reports absence of fever, chills, chest pain, palpitations, diaphoresis, abdominal pain, constipation, myalgia, headache, and dysuria. 05/27/2024 patient seen and examined at bedside. No acute events overnight. Labs showed WBC 9.01, hemoglobin 11.9, MCV 89.6, platelet count 1 87,000, 137, potassium 4.2, chloride 105, bicarb 20, anion gap 12, BUN 48.1, creatinine 1.6, glucose 104, calcium 8.6, magnesium 2.1, total bilirubin 0.5, AST 21, ALT 16, ALP 57. Review of systems: Pertinent positives and negatives as discussed in HPI, a complete review of systems was performed and all other systems are negative. Pertinent imaging and labs reviewed. Physical examination: Vital signs reviewed General: non toxic, no distress, appears at stated age Derm: no unusual rashes/lesions, warm Head: atraumatic, normocephalic, symmetric Eyes: EOMI, anicteric sclera, pupils equal round reactive to light ENT: Nose and ears atraumatic Neck: No cervical lymphadenopathy, trachea midline, supple Mouth: no lip lesion, mucus membranes dry Cardiovascular: S1S2 reg, no murmur Lungs: Diminished breath sounds, CTA bilateral, no rhonchi, no rales, no accessory muscle use Abdominal: soft, nontender to palpation, no guarding Ext: muscle strength 5 out of 5 in all 4 extremities grossly, no gross muscle atrophy, no contractures, positive dorsalis pedis pulse bilateral, no edema Neuro: CN II-XI grossly intact, no gross focal neuro deficits Psych: Alert and oriented x3, appropriate affect and mood Assessment/Plan: In summary, patient is a 74-year-old female with history of CKD stage IIIb, CVA, mitral valve prolapse, hypertension presenting with for generalized weakness. Found to have STEPHANIE and anion gap metabolic acidosis on labs. #. STEPHANIE, likely prerenal due to dehydration secondary to poor oral intake and diarrhea, improving #. CKD, baseline creatinine unknown #. High anion gap metabolic acidosis, improving BUN 48.1, creatinine 1.6 UA with 1+ protein, hyaline casts Bicarb 20, anion gap 20 Continue IV normal saline at 100 cc/h - Hold diuretics and ARB and avoid nephrotoxic medications Monitor CMP #. Leukocytosis, likely reactive, resolved #. Elevated hematocrit, resolved Monitor CBC Chronic Medical Conditions #. Essential hypertensionhold home diuretics and ARB #. History of stroke #. Hypothyroidism #. GERD #. Anxiety/Depression #. Scleroderma #. Chronic pain Resume home medications DVT ppx: Subq Lovenox 30 meq daily Code status: Full code F: IV Normal saline 100 mL/hr E: Replete as needed N: Heart healthy diet Evelin Nichols MD PGY-1/[employer] Manager Dictation was produced using [employer] dictation software. please excuse any grammatical, word or spelling errors. I have seen and evaluated the patient today. Discussed with the resident and agree with the residents finding and plan as documented in the resident's note. Changes highlighted in blue font. Objective - Vital Signs Vital signs: Vital Signs Temp 98.5 F 05/27/24 06:54 Pulse 72 05/27/24 06:54 Resp 16 05/27/24 06:54 BP 105/69 05/27/24 06:54 Pulse Ox 93 L 05/27/24 06:54 FiO2 Intake & Output 05/26/24 05/27/24 05/27/24 18:59 06:59 18:59 Weight 54.885 kg 54.885 kg Other: # Voids 1 - Labs CBC & Chem 7: 05/27/24 06:05 05/27/24 06:05 Labs: Abnormal Lab Results - Last 24 Hours (Table) 05/26/24 05/26/24 05/26/24 Range/Units 17:47 17:47 17:47 WBC 11.7 H (3.8-10.6) k/uL RBC 5.56 H (3.80-5.40) m/uL Hgb 16.1 H (11.4-16.0) gm/dL Hct 50.4 H (34.0-46.0) % Neutrophils # 8.9 H (1.3-7.7) k/uL APTT 16.8 L (22.0-30.0) sec Chloride 95 L (98-107) mmol/L Carbon Dioxide 21 L (22-30) mmol/L BUN 65 H (7-17) mg/dL Creatinine 2.36 H (0.52-1.04) mg/dL Glucose 101 H (74-99) mg/dL Calcium 10.4 H (8.4-10.2) mg/dL Magnesium 2.4 H (1.6-2.3) mg/dL Total Protein 9.5 H (6.3-8.2) g/dL Albumin 5.2 H (3.5-5.0) g/dL Urine Appearance (Clear) Urine Protein (Negative) Hyaline Casts (0-2) /lpf Urine Mucus (None) /hpf 05/26/24 Range/Units 20:00 WBC (3.8-10.6) k/uL RBC (3.80-5.40) m/uL Hgb (11.4-16.0) gm/dL Hct (34.0-46.0) % Neutrophils # (1.3-7.7) k/uL APTT (22.0-30.0) sec Chloride (98-107) mmol/L Carbon Dioxide (22-30) mmol/L BUN (7-17) mg/dL Creatinine (0.52-1.04) mg/dL Glucose (74-99) mg/dL Calcium (8.4-10.2) mg/dL Magnesium (1.6-2.3) mg/dL Total Protein (6.3-8.2) g/dL Albumin (3.5-5.0) g/dL Urine Appearance Cloudy H (Clear) Urine Protein 1+ H (Negative) Hyaline Casts 57 H (0-2) /lpf Urine Mucus Rare H (None) /hpf
[2024-05-27] MEDS: ISOSORBIDE MONONITRATE ER 30 MG TAB.ER.24H PO SCH (20:14)
[2024-05-27] MEDS: tiZANidine 4 MG TAB PO SCH (20:14)
[2024-05-28] MEDS: SODIUM CHLORIDE 0.9% 1,000 ML IV ONE (03:49)
[2024-05-28 06:14] LABS: Basophils % (A) 0 %; Eosinophils # (A) 0.1 k/uL (0-0.7); Eosinophils % (A) 2 %; HCT 30.5 % (34.0-46.0); Hypochromasia Moderate; Lymphocytes # (A) 1.8 k/uL (1.0-4.8); Lymphocytes % (A) 27 %; MCH 29.3 pg (25.0-35.0); MCHC 31.1 g/dL (31.0-37.0); MCV 94.2 fL (80.0-100.0); Mean Platelet Volume 10.7; Monocytes # (A) 0.7 k/uL (0-1.0); Monocytes % (A) 10 %; Neutrophils # (A) 3.9 k/uL (1.3-7.7); Neutrophils % (A) 58 %; Platelet Count 197 k/uL (150-450); RBC 3.24 m/uL (3.80-5.40); RDW 13.1 % (11.5-15.5); WBC 6.8 k/uL (3.8-10.6)
[2024-05-28 06:24] LABS: HGB 9.5 gm/dL (11.4-16.0)
[2024-05-28 06:26] LABS: African American GFR (CKD) 45 (>60 ml/min/1.73 sqM); Anion Gap 6 mmol/L; Blood Urea Nitrogen 40 mg/dL (7-17); Calcium 7.7 mg/dL (8.4-10.2); Carbon Dioxide 19 mmol/L (22-30); Chloride 110 mmol/L (98-107); Glucose 135 mg/dL (74-99); Non-African American GFR(CKD) 39 (>60 ml/min/1.73 sqM); Potassium 4.1 mmol/L (3.5-5.1); Sodium 135 mmol/L (137-145)
[2024-05-28] MEDS: LOPERAMIDE 2 MG CAP PO PRN (10:32)
[2024-05-28 10:39] LABS: Influenza A Not Detected (Not Detectd); Influenza B Not Detected (Not Detectd); RSV Not Detected (Not Detectd)
[2024-05-28] MEDS: BENZONATATE 100 MG CAP PO PRN (10:40)
[2024-05-28] MEDS: DOXYCYCLINE 100 MG TABLET PO SCH (11:19)
--- NOTE | 2024-05-28 11:41 | P.PN ---
Subjective Progress Note Date: 05/28/24 Patient is a 74-year-old female with history of CKD stage IIIb, CVA, mitral valve prolapse, hypertension presenting with for generalized weakness and cough. Patient endorses cough with productive greenish sputum, fatigue, decreased appetite, nausea and ongoing diarrhea. She states that close been going on the family and she did have sore throat and fever which is now resolved. Viral respiratory panel was negative at urgent care today. She continues to endorse some poor appetite, nausea, diarrhea, chest tightness with coughing and weakness. Currently patient reports absence of fever, chills, chest pain, palpitations, diaphoresis, abdominal pain, constipation, myalgia, headache, and dysuria. 05/27/2024 patient seen and examined at bedside. No acute events overnight. Labs showed WBC 9.01, hemoglobin 11.9, MCV 89.6, platelet count 1 87,000, 137, potassium 4.2, chloride 105, bicarb 20, anion gap 12, BUN 48.1, creatinine 1.6, glucose 104, calcium 8.6, magnesium 2.1, total bilirubin 0.5, AST 21, ALT 16, ALP 57. 05/28/2024 patient seen and examined at bedside. Required 1 L IV fluid bolus due to hypotension. Reported that she is still a cough and having diarrhea. Labs today showed WBC 6.8, hemoglobin 9.5, sodium 135, chloride 110, bicarb 19, BUN 40, creatinine 1.36, glucose 135, calcium 7.7. Review of systems: Pertinent positives and negatives as discussed in HPI, a complete review of systems was performed and all other systems are negative. Pertinent imaging and labs reviewed. Physical examination: Vital signs reviewed General: non toxic, no distress, appears at stated age, room air Derm: no unusual rashes/lesions, warm Head: atraumatic, normocephalic, symmetric Eyes: EOMI, anicteric sclera, pupils equal round reactive to light ENT: Nose and ears atraumatic Neck: No cervical lymphadenopathy, trachea midline, supple Mouth: no lip lesion, mucus membranes dry Cardiovascular: S1S2 reg, no murmur Lungs: CTA bilateral, no rhonchi, no rales, no accessory muscle use Abdominal: soft, nontender to palpation, no guarding Ext: muscle strength 5 out of 5 in all 4 extremities grossly, no gross muscle atrophy, no contractures, positive dorsalis pedis pulse bilateral, no edema Neuro: CN II-XI grossly intact, no gross focal neuro deficits Psych: Alert and oriented x3, appropriate affect and mood Assessment/Plan: In summary, patient is a 74-year-old female with history of CKD stage IIIb, CVA, mitral valve prolapse, hypertension presenting with for generalized weakness. Found to have STEPHANIE and anion gap metabolic acidosis on labs. #. Bronchitis secondary to Influenza URI with suspected superimposed bacterial component -Experiencing cough with productive sputum -Chest xray independently interpreted showed bibasilar opacities -Initiate doxycycline 100 mg p.o. twice daily -Cephid 4 plex ordered -pt reports she was told today that she was influenza A+ from her urgent care who tested her on 05/26 #. Viral gastroenteritis -Imodium as needed for diarrhea #. Hypotension related to volume depletion #. STEPHANIE, likely prerenal due to dehydration secondary to poor oral intake and diarrhea, improving #. CKD stage III or IV, baseline creatinine unknown #. High anion gap metabolic acidosis, improving BUN 60, creatinine 2; upgrade to inpatient d/t episodes of hypotension despite aggressive fluid resuscitation UA with 1+ protein, hyaline casts Bicarb 20, anion gap 20 Continue IV normal saline at 120 cc/h - Hold diuretics and ARB and avoid nephrotoxic medications - Monitor BMP #. Normocytic anemia -Hemoglobin dropped from 11.9 to 9.5 -Check iron studies -Monitor CBC #. Leukocytosis, likely reactive, resolved #. Elevated hematocrit, resolved Chronic Medical Conditions #. Essential hypertensionhold home diuretics and ARB #. History of stroke #. Hypothyroidism #. GERD #. Anxiety/Depression #. Scleroderma #. Chronic pain Resume home medications -Send home on ACEinh for hypertension DVT ppx: Subq Lovenox 30 meq daily Code status: Full code F: IV Normal saline 120 mL/hr E: Replete as needed N: Heart healthy diet Evelin Nichols MD PGY-1/[employer] Operator Dictation was produced using [employer] dictation software. please excuse any grammatical, word or spelling errors. I saw and evaluated the patient during the carroll and critical portions of this encounter, and discussed the case in detail with the resident author of this note, I agree with the Assessment and Plan, and my changes, if any, are highlighted in blue. Objective - Vital Signs Vital signs: Vital Signs Temp 97.7 F 05/28/24 01:48 Pulse 71 05/28/24 01:48 Resp 15 05/28/24 01:48 BP 96/62 05/28/24 05:55 Pulse Ox 93 L 05/28/24 01:48 FiO2 Intake & Output 05/27/24 05/28/24 05/28/24 18:59 06:59 18:59 Intake Total 380 Balance 380 Intake: Oral 380 Other: Voiding Method Toilet # Voids 3 2 - Labs CBC & Chem 7: 05/28/24 05:15 05/28/24 05:15 Labs: Abnormal Lab Results - Last 24 Hours (Table) 05/27/24 05/27/24 05/28/24 Range/Units 06:05 06:05 05:15 RBC 3.24 L (3.80-5.40) m/uL Hgb 11.9 L 9.5 L D (12.0-15.0) g/dL Hct 36.9 L 30.5 L (37.2-46.3) % MPV 13.9 H (9.5-12.2) FL Eosinophils # 0.02 L (0.04-0.35) X 10*3/uL Sodium (137-145) mmol/L Chloride (98-107) mmol/L Carbon Dioxide 20.0 L (21.6-31.8) mmol/L BUN 48.1 H (9.0-27.0) mg/dL Creatinine 1.6 H (0.6-1.5) mg/dL Est GFR (CKD-EPI) 34 L (>=60) BUN/Creatinine Ratio 30.06 H (12.00-20.00) Ratio Glucose (74-99) mg/dL Calcium 8.6 L (8.7-10.3) mg/dL Albumin 3.6 L (3.8-4.9) g/dL Albumin/Globulin Ratio 1.38 L (1.60-3.17) Ratio 05/28/24 Range/Units 05:15 RBC (3.80-5.40) m/uL Hgb (12.0-15.0) g/dL Hct (37.2-46.3) % MPV (9.5-12.2) FL Eosinophils # (0.04-0.35) X 10*3/uL Sodium 135 L (137-145) mmol/L Chloride 110 H (98-107) mmol/L Carbon Dioxide 19 L (21.6-31.8) mmol/L BUN 40 H (9.0-27.0) mg/dL Creatinine 1.36 H (0.6-1.5) mg/dL Est GFR (CKD-EPI) (>=60) BUN/Creatinine Ratio (12.00-20.00) Ratio Glucose 135 H (74-99) mg/dL Calcium 7.7 L (8.7-10.3) mg/dL Albumin (3.8-4.9) g/dL Albumin/Globulin Ratio (1.60-3.17) Ratio
[2024-05-28 15:41] LABS: % Iron Saturation 13.42 (12.00-45.00)
[2024-05-29 06:50] LABS: African American GFR (CKD) 61 (>60 ml/min/1.73 sqM); Anion Gap 7 mmol/L; Blood Urea Nitrogen 18 mg/dL (7-17); Carbon Dioxide 19 mmol/L (22-30); Chloride 114 mmol/L (98-107); Glucose 86 mg/dL (74-99); Non-African American GFR(CKD) 53 (>60 ml/min/1.73 sqM); Potassium 4.6 mmol/L (3.5-5.1); Sodium 140 mmol/L (137-145)
[2024-05-29] MEDS: SODIUM CHLORIDE 0.9% 1,000 ML IV ONE (08:30)
[2024-05-29 08:37] VITALS: RESP 18
[2024-05-29 08:58] LABS: Basophils % (A) 0 %; Eosinophils # (A) 0.2 k/uL (0-0.7); Eosinophils % (A) 3 %; HCT 31.8 % (34.0-46.0); HGB 9.7 gm/dL (11.4-16.0); Hypochromasia Slight; Lymphocytes # (A) 1.8 k/uL (1.0-4.8); Lymphocytes % (A) 25 %; MCH 28.8 pg (25.0-35.0); MCHC 30.5 g/dL (31.0-37.0); MCV 94.6 fL (80.0-100.0); Mean Platelet Volume 10.8; Monocytes # (A) 0.6 k/uL (0-1.0); Monocytes % (A) 8 %; Neutrophils # (A) 4.5 k/uL (1.3-7.7); Neutrophils % (A) 63 %; Platelet Count 219 k/uL (150-450); RBC 3.36 m/uL (3.80-5.40); RDW 13.4 % (11.5-15.5); WBC 7.3 k/uL (3.8-10.6)
--- NOTE | 2024-05-29 13:06 | P.DS ---
Providers Date of admission: 05/26/24 20:22 Attending physician: Mehreen Bacon MD Primary care physician: [employer] Course: Hospital Course: Patient is a 74-year-old female with history of CKD stage IIIb, CVA, mitral valve prolapse, hypertension presenting with for generalized weakness and cough. Prior to admission, she went to urgent care and reported that she was influenza A+. Labs significant for WBC 11.7, hemoglobin 16.1, hematocrit 50.4, sodium 137, potassium 5.1, chloride 95, bicarb 21, anion gap 21, BUN 65, creatinine 2.36, GFR 20, glucose 101, lactic acid 1.7, calcium 10.4, magnesium 2.4, troponin 0.012, proBNP 173, UA significant for cloudy appearance and 1+ protein with hyaline casts 57 EKG independently interpreted showed sinus rhythm, heart rate of 94, GA interval 119, QTc 399, no ST segment elevation or depression seen, with T wave inversion in leads V3 and V4. Chest x-ray done independently interpreted showed no acute cardiopulmonary process. Patient was admitted for evaluation of STEPHANIE and bronchitis. Ordered IV fluids, held diuretics and antihypertensives and monitoring for renal function. Patient's cough suspected to have bacterial component and oral antibiotics given. Patient experienced diarrhea and was given p.o. Imodium. Patient noted to have episodes of hypotension despite fluid resuscitation which required increased in fluid rate. Patient symptoms improved throughout hospital stay. She is cleared for discharge today with oral doxycycline, guaifenesin, Imodium and lisinopril. Her losartan and chlorthalidone were discontinued for now. Her Coreg was halved to 12.5 twice daily patient is advised to follow-up with PCP on outpatient basis. Final Diagnosis: #. Bronchitis secondary to Influenza URI with suspected superimposed bacterial component #. Viral gastroenteritis #. Normocytic anemia, stable #. Hypotension related to volume depletion, resolved #. STEPHANIE, likely prerenal due to dehydration secondary to poor oral intake and diarrhea, improving #. CKD stage III #. High anion gap metabolic acidosis, improved #. Essential hypertension #. History of stroke #. Hypothyroidism #. GERD #. Anxiety/Depression #. Scleroderma #. Chronic pain Physical examination: Vital signs reviewed General: non toxic, no distress Derm: no unusual rashes/lesions, warm Head: atraumatic, normocephalic, symmetric Eyes: EOMI, anicteric sclera, pupils equal round reactive to light ENT: Nose and ears atraumatic Neck: No cervical lymphadenopathy, trachea midline, supple Mouth: no lip lesion, mucus membranes moist Cardiovascular: S1S2 reg, no murmur Lungs: CTA bilateral, no rhonchi, no rales, no accessory muscle use Abdominal: soft, nondistended, nontender to palpation, no guarding Ext: muscle strength 5 out of 5 in all 4 extremities grossly, no gross muscle atrophy, no contractures, positive dorsalis pedis pulse bilateral, no edema Neuro: CN II-XI grossly intact, no gross focal neuro deficits Psych: Alert, oriented, appropriate affect and mood I saw and evaluated the patient during the carroll and critical portions of this encounter, and discussed the case in detail with the resident author of this note, I agree with the Assessment and Plan, and my changes, if any, are highlighted in blue. Patient Condition at Discharge: Good Plan - Discharge Summary Discharge Rx Participant: Yes New Discharge Prescriptions: New Doxycycline 100 mg PO BID #7 tab guaiFENesin 200 mg PO QID PRN #20 tablet PRN Reason: Cough Loperamide [Imodium] 2 mg PO QID PRN #20 cap PRN Reason: Diarrhea lisinopriL 20 mg PO DAILY #30 tab Continue Cholecalciferol (Vitamin D3) [Vitamin D3 (50 Mcg = 2000 Iu)] 100 mcg PO DAILY diphenhydrAMINE HCL [Benadryl] 25 mg PO DAILY Isosorbide Mononitrate ER [Imdur] 30 mg PO HS tiZANidine [Zanaflex] 4 mg PO HS methocarbamoL [Robaxin-750] 750 mg PO DAILY Omeprazole 40 mg PO DAILY Clopidogrel [Plavix] 75 mg PO DAILY Vitamin C With [employer] Bioflavonoid Complex 2 tab PO DAILY Calcium 500mg-Vit D3 10mcg 1 tab PO DAILY buPROPion XL [Wellbutrin XL] 300 mg PO DAILY Hydroxychloroquine Sulfate [Plaquenil] 200 mg PO DAILY Gabapentin [Neurontin] 300 mg PO BID Levothyroxine Sodium [Synthroid] 75 mcg PO DAILY Changed carvediloL [Coreg] 12.5 mg PO BID #0 Discontinued Losartan Potassium 100 mg PO HS Chlorthalidone [Hygroton] 25 mg PO DAILY Discharge Medication List Calcium 500mg-Vit D3 10mcg 1 tab PO DAILY 05/26/24 [History] Cholecalciferol (Vitamin D3) [Vitamin D3 (50 Mcg = 2000 Iu)] 100 mcg PO DAILY 05/26/24 [History] Clopidogrel [Plavix] 75 mg PO DAILY 05/26/24 [History] Gabapentin [Neurontin] 300 mg PO BID 05/26/24 [History] Hydroxychloroquine Sulfate [Plaquenil] 200 mg PO DAILY 05/26/24 [History] Isosorbide Mononitrate ER [Imdur] 30 mg PO HS 05/26/24 [History] Levothyroxine Sodium [Synthroid] 75 mcg PO DAILY 05/26/24 [History] Omeprazole 40 mg PO DAILY 05/26/24 [History] Vitamin C With [employer] Bioflavonoid Complex 2 tab PO DAILY 05/26/24 [History] buPROPion XL [Wellbutrin XL] 300 mg PO DAILY 05/26/24 [History] diphenhydrAMINE HCL [Benadryl] 25 mg PO DAILY 05/26/24 [History] methocarbamoL [Robaxin-750] 750 mg PO DAILY 05/26/24 [History] tiZANidine [Zanaflex] 4 mg PO HS 05/26/24 [History] Doxycycline 100 mg PO BID #7 tab 05/29/24 [Rx] Loperamide [Imodium] 2 mg PO QID PRN #20 cap 05/29/24 [Rx] carvediloL [Coreg] 12.5 mg PO BID #0 05/29/24 [Rx] guaiFENesin 200 mg PO QID PRN #20 tablet 05/29/24 [Rx] lisinopriL 20 mg PO DAILY #30 tab 05/29/24 [Rx] Follow up Appointment(s)/Referral(s): Ovidio Ramos MD [Primary Care Provider] - 1-2 days Patient Instructions/Handouts: Acute Kidney Injury (DC), Acute Bronchitis (GEN) Discharge Disposition: HOME SELF-CARE
[2024-05-29 14:28] VITALS: BP 159/75; PULSE 96; TEMP 98.6
== END 2024-05-29 15:34 | disposition home or self-care (01) | DRG 683 ==
LOC: EC 16:10 → 4SSUR 20:22 → INTOOBSV 20:22 → OBSVTOIN 20:22 → 4SSUR 21:11
PROVIDERS: ADMIT Internal Medicine; ATTEND Internal Medicine
DX: N17.9 Acute kidney failure, unspecified (principal); E87.20 Acidosis, unspecified; D63.1 Anemia in chronic kidney disease; N18.32 Chronic kidney disease, stage 3b; M34.9 Systemic sclerosis, unspecified; I12.9 Hypertensive chronic kidney disease with stage 1 through stage 4 chronic kidney disease, or unspecified chronic kidney disease; E03.9 Hypothyroidism, unspecified; F32.A Depression, unspecified; I34.1 Nonrheumatic mitral (valve) prolapse; J10.1 Influenza due to other identified influenza virus with other respiratory manifestations; E86.0 Dehydration; J40 Bronchitis, not specified as acute or chronic; A08.4 Viral intestinal infection, unspecified; I95.89 Other hypotension; K21.9 Gastro-esophageal reflux disease without esophagitis; F41.9 Anxiety disorder, unspecified; G89.29 Other chronic pain; Z79.02 Long term (current) use of antithrombotics/antiplatelets; Z79.890 Hormone replacement therapy; Z79.899 Other long term (current) drug therapy; Z86.73 Personal history of transient ischemic attack (TIA), and cerebral infarction without residual deficits
CPT/HCPCS: 36415; 71046; 80048; 80053; 81001; 82728; 83540; 83550; 83605; 83735; 83880; 84484; 85025; 85610; 85730; 87636; 93005; 94760; 96361; 96374; 99285